=== PATIENT | female | born 1985 | race Caucasian/White ===

== ENCOUNTER 2021-03-14 12:43 | Emergency (ER) | payer OTHER ==
[~2021-03-14] VITALS: Ht 160 cm; Wt 50.7 kg
[2021-03-14] MEDS ORDERED: ONDANSETRON ODT 4 MG PO ONE (13:30)
[2021-03-14 13:36] LABS: BASOPHILS % (AUTO) 1 % (0-1); EOSINOPHILS % (AUTO) 2 % (1-7); LYMPHOCYTES % (AUTO) 33 % (22-44); MD NO; MEAN CORPUSCULAR HEMOGLOBIN 32.3 pg (27.0-34.8); MEAN CORPUSCULAR HGB CONC 34.1 g/dL (32.4-35.8); MONOCYTES % (AUTO) 6 % (2-9); NEUTROPHILS % (AUTO) 59 % (42-75); PLATELET COUNT 185 x10^3/uL (130-400)
[2021-03-14 13:48] LABS: ALANINE AMINOTRANSFERASE 34 U/L (12-78); ALBUMIN 3.9 g/dL (3.4-5.0); ANION GAP 4 mmol/L (5-15); CALCIUM 8.7 mg/dL (8.5-10.1); CHLORIDE 108 mmol/L (98-107); CREATININE 0.77 mg/dL (0.55-1.02)
[2021-03-14 13:52] LABS: ALKALINE PHOSPHATASE 42 U/L (45-117); BILIRUBIN,TOTAL 0.3 mg/dL (0.2-1.0); TOTAL PROTEIN 6.7 g/dL (6.4-8.2)
--- NOTE | 2021-03-14 13:58 | NUR ---
PT OFF UNIT FOR ULTRASOUND.
[2021-03-14 14:20] LABS: MICROSCOPIC NOT IND
[2021-03-14] MEDS ORDERED: ONDANSETRON ODT 4 MG ONE (14:23)
[2021-03-14 14:57] VITALS: BP 114/74
[2021-03-14 15:18] LABS: CLUE CELLS PRESENT (NONE SEEN); WET PREP WBCS MODERATE (FEW)
== END 2021-03-14 16:18 | disposition home or self-care (01) ==
LOC: ED 16:05
DX: E28.2 Polycystic ovarian syndrome (principal); N76.0 Acute vaginitis; R10.84 Generalized abdominal pain
CPT/HCPCS: 36415; 76830; 80053; 81003; 84702; 85025; 87210; 87491; 87591; 87808; 99284